=== PATIENT | male | born 1985 | race Two or more races ===

== ENCOUNTER 2018-04-30 16:00 | Emergency (ER) | payer SELFPAY ==
[~2018-04-30] VITALS: Ht 172.7 cm; Wt 74.8 kg
[2018-04-30 16:02] VITALS: BP 122/76
[2018-04-30] MEDS ORDERED: TETRACAINE HCL/PF 0.5% UD 2 ML BOTTLE ONE (16:11)
[2018-04-30] MEDS ORDERED: FLUORESCEIN SODIUM OPHTH 1 EA STRIP ONE (16:11)
[2018-04-30] MEDS ORDERED: FLUORESCEIN SODIUM OPHTH 1 EA STRIP OP ONE (16:30)
[2018-04-30] MEDS ORDERED: TETRACAINE HCL/PF 0.5% UD 2 ML BOTTLE RIGHTEYE ONE (16:30)
== END 2018-04-30 16:44 | disposition home or self-care (01) ==
LOC: ER 16:03
DX: H00.012 Hordeolum externum right lower eyelid (principal); R51 Headache; M89.8X8 Other specified disorders of bone, other site; L53.8 Other specified erythematous conditions; Z90.49 Acquired absence of other specified parts of digestive tract
CPT/HCPCS: 99283; A4606; A6410; Z7610

== ENCOUNTER 2018-05-10 17:42 | Emergency (ER) | payer MEDICAID ==
[~2018-05-10] VITALS: Ht 170.2 cm; Wt 90.7 kg
[2018-05-10 17:42] VITALS: BP 117/86
== END 2018-05-10 18:32 | disposition home or self-care (01) ==
LOC: ER 17:46
DX: H00.012 Hordeolum externum right lower eyelid (principal); R51 Headache
CPT/HCPCS: 99283; A4606; Z7610